=== PATIENT | male | born 1990 | race African-American/Black ===

== ENCOUNTER 2021-02-22 23:45 | Emergency (ER) | payer OTHER ==
[~2021-02-22] VITALS: Ht 175.3 cm; Wt 73.5 kg
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
--- NOTE | 2021-02-22 23:50 | NUR ---
DR ANSARI AT BED SIDE
[2021-02-23] MEDS ORDERED: HYDR-4209 PO (00:35)
[2021-02-23] MEDS ORDERED: ONDANSETRON 4 MG TAB.RAPDIS ONE (00:35)
[2021-02-23] MEDS ORDERED: HYDROCODONE/APAP 10/325MG TABLET ONE (00:35)
[2021-02-23] MEDS ORDERED: CYCL10TA9 PO (00:35)
[2021-02-23] MEDS ORDERED: ONDANSETRON 4 MG TAB.RAPDIS SL ONE (01:00)
[2021-02-23] MEDS ORDERED: HYDROCODONE/APAP 10/325MG TABLET PO ONE (01:00)
[2021-02-23] MEDS ORDERED: HYDROMORPHONE 1 MG/1 ML DISP.SYRIN ONE (01:26)
[2021-02-23] MEDS ORDERED: HYDROMORPHONE 1 MG/1 ML DISP.SYRIN IM ONE (01:30)
[2021-02-23 01:51] VITALS: BP 136/97
--- NOTE | 2021-02-23 01:51 | NUR ---
Patient discharged to home in stable condition. Written and verbal after care instructions given. Patient verbalizes understanding of instruction.Mr Jenkins is ambulatory with a steady gait
== END 2021-02-23 01:56 | disposition home or self-care (01) ==
LOC: ER 23:48
DX: S13.8XXA Sprain of joints and ligaments of other parts of neck, initial encounter (principal); Z79.899 Other long term (current) drug therapy; V49.49XA Driver injured in collision with other motor vehicles in traffic accident, initial encounter; Y93.89 Activity, other specified; Y92.488 Other paved roadways as the place of occurrence of the external cause; Y99.8 Other external cause status
CPT/HCPCS: 72125; 96372; 99284; J1170; Q0162